=== PATIENT | female | born 1965 | race Asian ===

== ENCOUNTER 2017-10-21 14:58 | Inpatient (IN) | payer MEDICARE, MEDICAID ==
[~2017-10-21] VITALS: Ht 167.6 cm; Wt 58.1 kg
[2017-10-21 14:55] VITALS: BP 81/53
[~2017-10-21 14:58] MED LIST: PAXIL40 MG PO; TOPAMAX25 MG PO
[2017-10-21 16:27] LABS: ANION GAP 5 mmol/L (5-15); BLOOD UREA NITROGEN 20 mg/dL (7-18); CALCIUM 9.2 MG/DL (8.5-10.1); CARBON DIOXIDE 33 MMOL/L (21-32); CHLORIDE 105 MMOL/L (98-107); CREATININE 0.5 MG/DL (0.55-1.30); POTASSIUM 3.8 MMOL/L (3.5-5.1); SODIUM 143 MMOL/L (136-145)
[2017-10-21 16:29] LABS: BASOPHILS % (AUTO) 1.2 % (0.0-2.0); EOSINOPHILS % (AUTO) 1.5 % (0.0-3.0); HEMATOCRIT 34.9 % (37.0-47.0); HEMOGLOBIN 11.7 G/DL (12.0-16.0); MEAN CORPUSCULAR VOLUME 92 FL (80-99); MONOCYTES % (AUTO) 8.4 % (1.0-10.0); NEUTROPHILS % (AUTO) 45.9 % (45.0-75.0); PLATELET COUNT 263 K/UL (150-450); RED BLOOD COUNT 3.81 M/UL (4.20-5.40); RED CELL DISTRIBUTION WIDTH 12.6 % (11.6-14.8); WHITE BLOOD COUNT 6.1 K/UL (4.8-10.8)
[2017-10-21 16:31] LABS: INR 0.9 (0.9-1.1)
[2017-10-21 16:32] LABS: ALANINE AMINOTRANSFERASE 23 U/L (12-78); ALBUMIN 3.8 G/DL (3.4-5.0); ALBUMIN/GLOBULIN RATIO 1.1 (1.0-2.7); ALKALINE PHOSPHATASE 83 U/L (46-116); ASPARTATE AMINO TRANSFERASE 10 U/L (15-37); BILIRUBIN,TOTAL 0.2 MG/DL (0.2-1.0)
--- NOTE | 2017-10-21 16:32 | Diagnostic Imaging Report ---
Indication: Trauma, status post fall, head pain Technique: Continuous helical CT scanning of the head was performed without intravenous contrast material. Axial and coronal 5 mm sections were generated. Radiation dose was minimized using automated exposure control Dose: Total Dose Length Product - DLP 1432.[address] Dose Index - CTDIvol(s) 70.38 mGy. Comparison: none Findings: The ventricular system is normal in size and configuration. There is no shift of midline structures. No abnormal extra-axial fluid collections are noted. There is no evidence of intracerebral bleeding. No other abnormal high or low density areas are noted within the brain. Impression: Normal CT scan of the head without contrast material. The CT scanner at [facility] is accredited by the [employer] and the scans are performed using protocols designed to limit radiation exposure to as low as reasonably achievable to attain images of sufficient resolution adequate for diagnostic evaluation.
[2017-10-21 18:51] VITALS: BP 94/58
--- NOTE | 2017-10-21 19:12 | Emergency Room Report ---
History of Present Illness General Chief Complaint: Multiple Trauma/Fall Source: Patient Present Illness HPI This patient had a fall at the long-term facility while trying to get out of bed. She fell forward and hit her forehead. She states that she stood up from her bed and felt lightheaded and then fell. She is unsure if she lost consciousness. She denies chest pain or short of breath. She denies abdominal pain. She denies neck pain or headache. She had no other injuries. She has no other complaints. Allergies: Coded Allergies: SULFAMETHOXAZOLE (Verified Allergy, Severe, Hives, 12/17/11) TRIMETHOPRIM (Verified Allergy, Severe, Hives, 12/17/11) SULFA (SULFONAMIDE ANTIBIOTICS) (Unverified Allergy, Unknown, 10/21/17) Patient History Past Medical History: see triage record, other - Bilateral fractured ankles. Social History: Denies: smoking, alcohol use, drug use Last Menstrual Period: n/a Reviewed Nursing Documentation: PMH: Agreed; PSxH: Agreed Review of Systems All Other Systems: negative except mentioned in HPI Physical Exam Vital Signs Date Time Temp Pulse Resp B/P (MAP) Pulse Ox O2 Delivery O2 Flow Rate FiO2 10/21/17 14:50 98.1 70 16 88/60 98 Room Air 98.1 Sp02 EP Interpretation: reviewed, normal General Appearance: no apparent distress, alert, GCS 15, non-toxic Head: normocephalic, atraumatic Eyes: bilateral eye normal inspection, bilateral eye PERRL ENT: hearing grossly normal, normal pharynx, no angioedema, normal voice Neck: full range of motion, supple/symm/no masses Respiratory: chest non-tender, lungs clear, normal breath sounds, speaking full sentences Cardiovascular #1: regular rate, rhythm, no edema Gastrointestinal: normal bowel sounds, non tender, soft, non-distended, no guarding, no rebound Rectal: deferred Musculoskeletal: back normal, normal range of motion, non-tender Neurologic: alert, oriented x3, responsive, motor strength/tone normal, sensory intact, speech normal Psychiatric: memory normal, mood/affect normal, no suicidal/homicidal ideation Skin: normal color, no rash, warm/dry, well hydrated Medical Decision Making Diagnostic Impression: Primary Impression: Closed head injury Additional Impression: Syncope ER Course This patient presents with mechanical fall and closed head injury. CT of the head shows no acute findings. The patient has nonspecific ST segment findings on EKG. I suspect this is baseline for this patient. However, unfortunately I do not have a comparison available. The patient also describes a syncopal episode. The patient's blood pressure is slightly low and she may have orthostatic hypotension. Regardless, I will admit this patient for further monitoring, evaluation and treatment. Laboratory Tests Test 10/21/17 16:00 White Blood Count 6.1 K/UL (4.8-10.8) Red Blood Count 3.81 M/UL (4.20-5.40) L Hemoglobin 11.7 G/DL (12.0-16.0) L Hematocrit 34.9 % (37.0-47.0) L Mean Corpuscular Volume 92 FL (80-99) Mean Corpuscular Hemoglobin 30.8 PG (27.0-31.0) Mean Corpuscular Hemoglobin Concent 33.7 G/DL (32.0-36.0) Red Cell Distribution Width 12.6 % (11.6-14.8) Platelet Count 263 K/UL (150-450) Mean Platelet Volume 5.9 FL (6.5-10.1) L Neutrophils (%) (Auto) 45.9 % (45.0-75.0) Lymphocytes (%) (Auto) 43.0 % (20.0-45.0) Monocytes (%) (Auto) 8.4 % (1.0-10.0) Eosinophils (%) (Auto) 1.5 % (0.0-3.0) Basophils (%) (Auto) 1.2 % (0.0-2.0) Prothrombin Time 9.8 SEC (9.30-11.50) Prothrombin Time INR 0.9 (0.9-1.1) PTT 27 SEC (23-33) Sodium Level 143 MMOL/L (136-145) Potassium Level 3.8 MMOL/L (3.5-5.1) Chloride Level 105 MMOL/L (98-107) Carbon Dioxide Level 33 MMOL/L (21-32) H Anion Gap 5 mmol/L (5-15) Blood Urea Nitrogen 20 mg/dL (7-18) H Creatinine 0.5 MG/DL (0.55-1.30) L Estimate Glomerular Filtration Rate > 60 mL/min (>60) Glucose Level 92 MG/DL (74-106) Calcium Level 9.2 MG/DL (8.5-10.1) Total Bilirubin 0.2 MG/DL (0.2-1.0) Aspartate Amino Transferase (AST) 10 U/L (15-37) L Alanine Aminotransferase (ALT) 23 U/L (12-78) Alkaline Phosphatase 83 U/L (46-116) Total Protein 7.3 G/DL (6.4-8.2) Albumin 3.8 G/DL (3.4-5.0) Globulin 3.5 g/dL Albumin/Globulin Ratio 1.1 (1.0-2.7) EKG Diagnostic Results Rate: tachycardiac Rhythm: other - S.tachycardia ST Segments: no acute changes Rhythm Strip Diag. Results EP Interpretation: yes Rate: 70's Rhythm: NSR, no PVC's, no ectopy Chest X-Ray Diagnostic Results Chest X-Ray Diagnostic Results : Chest X-Ray Ordered: Yes # of Views/Limited/Complete: 1 View Indication: Other EP Interpretation: Yes Interpretation: no consolidation, no effusion, no pneumothorax, no acute cardiopulmonary disease Impression: No acute disease Electronically Signed by: Sona CT/MRI/US Diagnostic Results CT/MRI/US Diagnostic Results : Imaging Test Ordered: CT head Impression No acute findings. See official report. Last Vital Signs Date Time Temp Pulse Resp B/P (MAP) Pulse Ox O2 Delivery O2 Flow Rate FiO2 10/21/17 18:51 73 20 94/58 99 Room Air 10/21/17 14:55 98.1 98.1 Disposition: ADMITTED INPATIENT Condition: Stable Referrals: Jorge Solitario MD (PCP) Pamela Ramon DO Oct 21, 2017 19:12
[2017-10-21] MEDS ORDERED: VITAMIN D1000 UNI1 ORAL (19:57)
[2017-10-21] MEDS ORDERED: ACETAMINOP160 MG/51 ORAL (19:57)
[2017-10-21] MEDS ORDERED: GABAPENTIN300 MG ORAL (19:57)
[2017-10-21] MEDS ORDERED: PRAVASTATIN SOD20 M1 ORAL (19:57)
[2017-10-21] MEDS ORDERED: RISPERDAL1 MG PO (19:57)
[2017-10-21] MEDS ORDERED: HEPARIN SO5000 UNIT2 SUBQ (19:57)
[2017-10-21] MEDS ORDERED: ZOFRAN ODT8 MG ORAL (19:57)
[2017-10-21] MEDS ORDERED: DOCUSATE SODIU250 MG ORAL (19:57)
[2017-10-21] MEDS ORDERED: MIRALAX17 G2 ORAL (19:57)
[2017-10-21] MEDS ORDERED: BISACODYL5 MG ORAL (19:57)
[2017-10-21] MEDS ORDERED: LAMICTAL100 MG ORAL (19:57)
[2017-10-21] MEDS ORDERED: BISACODYL10 M1 RC (19:57)
[2017-10-21] MEDS ORDERED: MULTIVITAMINS1 EA14 PO (19:57)
[2017-10-21] MEDS ORDERED: PAXIL20 MG ORAL (19:57)
[2017-10-21] MEDS ORDERED: LACTULOSE20 GM/301 ORAL (19:57)
[2017-10-21] MEDS ORDERED: LORAZEPAM0.5 MG ORAL (19:57)
[2017-10-21] MEDS ORDERED: SENNA LAXATIVE8.6 MG PO (19:57)
[2017-10-21 20:23] LABS: CREATINE KINASE 26 U/L (26-308)
[2017-10-21 21:30] VITALS: BP 117/69
[2017-10-21] MEDS: D5 1/2NS 1,000 ML IV SCH (22:45)
[2017-10-22] VITALS: BP 92/59
[2017-10-22 04:00] VITALS: BP 99/62
[2017-10-22 05:10] LABS: BASOPHILS % (AUTO) 1.3 % (0.0-2.0); HEMATOCRIT 37.1 % (37.0-47.0); HEMOGLOBIN 12.1 G/DL (12.0-16.0); LYMPHOCYTES % (AUTO) 42.9 % (20.0-45.0); MEAN CORPUSCULAR VOLUME 93 FL (80-99); MONOCYTES % (AUTO) 7.4 % (1.0-10.0); NEUTROPHILS % (AUTO) 46.3 % (45.0-75.0); PLATELET COUNT 274 K/UL (150-450); RED BLOOD COUNT 3.97 M/UL (4.20-5.40); RED CELL DISTRIBUTION WIDTH 12.5 % (11.6-14.8); WHITE BLOOD COUNT 4.8 K/UL (4.8-10.8)
[2017-10-22 05:25] LABS: ANION GAP 7 mmol/L (5-15); BLOOD UREA NITROGEN 17 mg/dL (7-18); CALCIUM 9.1 MG/DL (8.5-10.1); CARBON DIOXIDE 29 MMOL/L (21-32); CHLORIDE 107 MMOL/L (98-107); CREATININE 0.5 MG/DL (0.55-1.30); POTASSIUM 4.2 MMOL/L (3.5-5.1); SODIUM 143 MMOL/L (136-145)
[2017-10-22] MEDS: D5 1/2NS 1,000 ML IV SCH ×2 (05:32→14:41)
[2017-10-22 08:00] VITALS: BP 106/69
--- NOTE | 2017-10-22 11:15 | Consultation ---
History of Present Illness General Date patient seen: Oct 22, 2017 Chief Complaint: Multiple Trauma/Fall Present Illness HPI 51 yo with hx of schizophrenia and depression and mmp. who was admitted for medical care. the pt stated that she was anxious, the pt is not psychotic nor manic. no si/hi Allergies: Coded Allergies: SULFAMETHOXAZOLE (Verified Allergy, Severe, Hives, 12/17/11) TRIMETHOPRIM (Verified Allergy, Severe, Hives, 12/17/11) SULFA (SULFONAMIDE ANTIBIOTICS) (Unverified Allergy, Unknown, 10/21/17) Medication History Scheduled Cholecalciferol (Vitamin D3)* (Vitamin D*), 6,000 UNITS ORAL DAILY, (Reported) Docusate Sodium* (Docusate Sodium*), 250 MG ORAL TWICE A DAY, (Reported) Gabapentin* (Gabapentin*), 300 MG ORAL THREE TIMES A DAY, (Reported) Heparin Sod (Porcine) (Heparin Sodium*), 5,000 UNITS SUBQ EVERY 12 HOURS, ( Reported) Lactulose (Lactulose*), 30 ML ORAL THREE TIMES A DAY, (Reported) Lamotrigine* (Lamictal*), 200 MG ORAL DAILY, (Reported) Multivitamin (Multivitamins), 1 EACH PO DAILY, (Reported) Paroxetine Hcl* (Paxil*), 20 MG ORAL QHS, (Reported) Pravastatin Sod* (Pravastatin Sod*), 20 MG ORAL BEDTIME, (Reported) Risperidone* (Risperdal*), 1 MG PO BID, (Reported) Sennosides (Senna Laxative), 2 TAB PO QHS, (Reported) Scheduled PRN Acetaminophen* (Acetaminophen*), 650 MG ORAL TID PRN for Mild Pain (Pain Scale 1 -3), (Reported) Bisacodyl* (Dulcolax*), 10 MG ORAL DAILY PRN for Constipation, (Reported) Lorazepam* (Lorazepam*), 0.5 MG ORAL Q12HR PRN for For Anxiety, (Reported) Ondansetron Odt* (Zofran Odt*), 4 MG ORAL PRN PRN for Nausea & Vomiting, ( Reported) Polyethylene Glycol 3350* (Miralax*), 17 GM ORAL DAILY PRN for Constipation, ( Reported) Discontinued Medications Bisacodyl (Bisacodyl), 10 MG RC PRN PRN for Constipation, (Reported) Discontinued Reason: Therapy completed Patient History History Provided By: Patient, Medical Record, PMD Healthcare decision maker Resuscitation status Full Code Advanced Directive on File Yes Past Medical/Surgical History Past Medical/Surgical History: (1) Closed head injury (2) Syncope Review of Systems Psychiatric: Reports: prior hx, anxiety, depressed feelings, emotional problems Physical Exam General Appearance: WD/WN, no apparent distress, alert Neurologic: oriented x 3, responsive, depressed affect Last 24 Hour Vital Signs Date Time Temp Pulse Resp B/P (MAP) Pulse Ox O2 Delivery O2 Flow Rate FiO2 10/22/17 09:00 Room Air 10/22/17 08:00 96.9 72 17 106/69 (81) 95 96.9 10/22/17 08:00 72 80 97 10/22/17 08:00 71 10/22/17 04:00 74 10/22/17 04:00 98.1 66 20 99/62 (74) 96 98.1 10/22/17 00:00 77 10/22/17 00:00 97.3 72 20 92/59 (70) 97 97.3 10/21/17 23:19 Room Air 10/21/17 21:45 81 10/21/17 21:30 97.5 68 19 117/69 (85) 100 97.5 10/21/17 21:15 98.1 73 20 94/58 99 Room Air 98.1 10/21/17 18:51 73 20 94/58 99 Room Air 10/21/17 14:55 98.1 16 81/53 98 Room Air 98.1 10/21/17 14:50 98.1 70 16 88/60 98 Room Air 98.1 Intake and Output 10/21/17 10/22/17 19:00 07:00 Intake Total 848 ml Balance 848 ml Intake IV Total 848 ml # Voids 3 Laboratory Tests Test 10/21/17 16:00 10/21/17 23:04 10/22/17 04:53 White Blood Count 6.1 K/UL (4.8-10.8) 4.8 K/UL (4.8-10.8) Red Blood Count 3.81 M/UL (4.20-5.40) L 3.97 M/UL (4.20-5.40) L Hemoglobin 11.7 G/DL (12.0-16.0) L 12.1 G/DL (12.0-16.0) Hematocrit 34.9 % (37.0-47.0) L 37.1 % (37.0-47.0) Mean Corpuscular Volume 92 FL (80-99) 93 FL (80-99) Mean Corpuscular Hemoglobin 30.8 PG (27.0-31.0) 30.5 PG (27.0-31.0) Mean Corpuscular Hemoglobin Concent 33.7 G/DL (32.0-36.0) 32.6 G/DL (32.0-36.0) Red Cell Distribution Width 12.6 % (11.6-14.8) 12.5 % (11.6-14.8) Platelet Count 263 K/UL (150-450) 274 K/UL (150-450) Mean Platelet Volume 5.9 FL (6.5-10.1) L 6.4 FL (6.5-10.1) L Neutrophils (%) (Auto) 45.9 % (45.0-75.0) 46.3 % (45.0-75.0) Lymphocytes (%) (Auto) 43.0 % (20.0-45.0) 42.9 % (20.0-45.0) Monocytes (%) (Auto) 8.4 % (1.0-10.0) 7.4 % (1.0-10.0) Eosinophils (%) (Auto) 1.5 % (0.0-3.0) 2.0 % (0.0-3.0) Basophils (%) (Auto) 1.2 % (0.0-2.0) 1.3 % (0.0-2.0) Prothrombin Time 9.8 SEC (9.30-11.50) Prothromb Time International Ratio 0.9 (0.9-1.1) Activated Partial Thromboplast Time 27 SEC (23-33) Sodium Level 143 MMOL/L (136-145) 143 MMOL/L (136-145) Potassium Level 3.8 MMOL/L (3.5-5.1) 4.2 MMOL/L (3.5-5.1) Chloride Level 105 MMOL/L (98-107) 107 MMOL/L (98-107) Carbon Dioxide Level 33 MMOL/L (21-32) H 29 MMOL/L (21-32) Anion Gap 5 mmol/L (5-15) 7 mmol/L (5-15) Blood Urea Nitrogen 20 mg/dL (7-18) H 17 mg/dL (7-18) Creatinine 0.5 MG/DL (0.55-1.30) L 0.5 MG/DL (0.55-1.30) L Estimat Glomerular Filtration Rate > 60 mL/min (>60) > 60 mL/min (>60) Glucose Level 92 MG/DL (74-106) 115 MG/DL (74-106) H Calcium Level 9.2 MG/DL (8.5-10.1) 9.1 MG/DL (8.5-10.1) Total Bilirubin 0.2 MG/DL (0.2-1.0) Aspartate Amino Transf (AST/SGOT) 10 U/L (15-37) L Alanine Aminotransferase (ALT/SGPT) 23 U/L (12-78) Alkaline Phosphatase 83 U/L (46-116) Total Protein 7.3 G/DL (6.4-8.2) Albumin 3.8 G/DL (3.4-5.0) Globulin 3.5 g/dL Albumin/Globulin Ratio 1.1 (1.0-2.7) Troponin I 0.000 ng/mL (0.000-0.056) 0.000 ng/mL (0.000-0.056) Height (Feet): 5 Height (Inches): 6.00 Weight (Pounds): 128 Medications Current Medications Medications (Trade) Dose Ordered Sig/Melinda Route PRN Reason Start Time Stop Time Status Last Admin Dose Admin Dextrose/Sodium Chloride 1,000 ml @ 125 mls/hr Q8H IV 10/21/17 22:30 10/22/17 22:29 10/22/17 05:32 Risperidone (RisperDAL) 1 mg BID ORAL 10/21/17 22:45 11/20/17 22:44 10/22/17 08:32 Assessment/Plan Status: stable Assessment/Plan Schizophrenia MDD Anxiety d/o -Risperdal -Klonopin -st/ro Kalie Borrego MD Oct 22, 2017 11:15
[2017-10-22 12:00] VITALS: BP 96/60
--- NOTE | 2017-10-22 14:52 | Cardiology Report ---
APPROVED REPORT EXAM: Two-dimensional and M-mode echocardiogram with Doppler and color Doppler. INDICATION Syncope M-Mode DIMENSIONS IVSd0.8 (0.7-1.1cm)Left Atrium (MM)3.1 (1.6-4.0cm) LVDd4.6 (3.5-5.6cm)Aortic Root3.1 (2.0-3.7cm) PWd0.8 (0.7-1.1cm)Aortic Cusp Exc.2.0 (1.5-2.0cm) LVDs2.8 (2.5-4.0cm) PWs1.3 cm Normal left ventricular chamber size, systolic function and wall motion. Left ventricular ejection fraction estimated to be 60 %. No evidence of left ventricular hypertrophy. No evidence of pericardial effusion. All other cardiac chamber sizes are within normal limits. Mild focal aortic valve sclerosis with adequate cusp excursion. Mildly thickened mitral valve leaflets with normal excursion. Mildm mitral annulus and aortic root calcification. Normal pulmonic valve structure. Normal tricuspid valve structure. IVC at normal size with physiologic collapse. A color flow and spectral Doppler study was performed and revealed: Trace aortic regurgitation. No mitral regurgitation. Mitral inflow indicates normal left ventricular diastolic function. Mild tricuspid regurgitation. Tricuspid systolic velocities suggests peak right ventricular systolic pressure of 27 mmHg. No pulmonic regurgitation present.
--- NOTE | 2017-10-22 15:25 | History and Physical ---
History of Present Illness General Date patient seen: Oct 22, 2017 Reason for Hospitalization: Multiple Trauma/Fall Present Illness HPI 51 y/o female with a PMH of psychosis and bilateral ankle fractures s/p bilateral ORIF presented with dizziness and near syncope from [facility], [facility]. Patient states that she had quickly gotten up and started feeling dizzy. She states that she feel face forward and hit her forehead but denies losing consciousness. She reports headache yesterday but states this has resolved today. No bruising, redness, or bleeding noted to forehead. CT head done in ED showed no acute pathology or bleed. Patient states that this has happened to her before but did not have a full workup done. In the ED, patient was noted to be hypotensive in the systolic 90s. Denies fevers, chills, chest pain, sob, dysuria, generalized weakness. Allergies: Coded Allergies: SULFAMETHOXAZOLE (Verified Allergy, Severe, Hives, 12/17/11) TRIMETHOPRIM (Verified Allergy, Severe, Hives, 12/17/11) SULFA (SULFONAMIDE ANTIBIOTICS) (Unverified Allergy, Unknown, 10/21/17) Medication History Scheduled Cholecalciferol (Vitamin D3)* (Vitamin D*), 6,000 UNITS ORAL DAILY, (Reported) Docusate Sodium* (Docusate Sodium*), 250 MG ORAL TWICE A DAY, (Reported) Gabapentin* (Gabapentin*), 300 MG ORAL THREE TIMES A DAY, (Reported) Heparin Sod (Porcine) (Heparin Sodium*), 5,000 UNITS SUBQ EVERY 12 HOURS, ( Reported) Lactulose (Lactulose*), 30 ML ORAL THREE TIMES A DAY, (Reported) Lamotrigine* (Lamictal*), 200 MG ORAL DAILY, (Reported) Multivitamin (Multivitamins), 1 EACH PO DAILY, (Reported) Paroxetine Hcl* (Paxil*), 20 MG ORAL QHS, (Reported) Pravastatin Sod* (Pravastatin Sod*), 20 MG ORAL BEDTIME, (Reported) Risperidone* (Risperdal*), 1 MG PO BID, (Reported) Sennosides (Senna Laxative), 2 TAB PO QHS, (Reported) Scheduled PRN Acetaminophen* (Acetaminophen*), 650 MG ORAL TID PRN for Mild Pain (Pain Scale 1 -3), (Reported) Bisacodyl* (Dulcolax*), 10 MG ORAL DAILY PRN for Constipation, (Reported) Lorazepam* (Lorazepam*), 0.5 MG ORAL Q12HR PRN for For Anxiety, (Reported) Ondansetron Odt* (Zofran Odt*), 4 MG ORAL PRN PRN for Nausea & Vomiting, ( Reported) Polyethylene Glycol 3350* (Miralax*), 17 GM ORAL DAILY PRN for Constipation, ( Reported) Discontinued Medications Bisacodyl (Bisacodyl), 10 MG RC PRN PRN for Constipation, (Reported) Discontinued Reason: Therapy completed Patient History History Provided By: Patient Healthcare decision maker Resuscitation status Full Code Advanced Directive on File Yes Review of Systems All Other Systems: negative except mentioned in HPI Physical Exam General Appearance: no apparent distress, alert HEENT: normocephalic, atraumatic Neck: non-tender, normal alignment, supple Respiratory/Chest: chest wall non-tender, lungs clear, normal breath sounds Cardiovascular/Chest: normal peripheral pulses, normal rate, regular rhythm Abdomen: normal bowel sounds, non tender, soft Skin Exam: normal pigmentation, warm/dry 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 automotive II-XII grossly normal, no motor/sensory deficits, alert, oriented x 3 Last 24 Hour Vital Signs Date Time Temp Pulse Resp B/P (MAP) Pulse Ox O2 Delivery O2 Flow Rate FiO2 10/22/17 12:00 75 10/22/17 12:00 98.1 74 18 96/60 (72) 95 98.1 10/22/17 09:00 Room Air 10/22/17 08:00 96.9 72 17 106/69 (81) 95 96.9 10/22/17 08:00 72 80 97 10/22/17 08:00 71 10/22/17 04:00 74 10/22/17 04:00 98.1 66 20 99/62 (74) 96 98.1 10/22/17 00:00 77 10/22/17 00:00 97.3 72 20 92/59 (70) 97 97.3 10/21/17 23:19 Room Air 10/21/17 21:45 81 10/21/17 21:30 97.5 68 19 117/69 (85) 100 97.5 10/21/17 21:15 98.1 73 20 94/58 99 Room Air 98.1 10/21/17 18:51 73 20 94/58 99 Room Air Intake and Output 10/21/17 10/22/17 19:00 07:00 Intake Total 973 ml Balance 973 ml Intake IV Total 973 ml # Voids 3 Laboratory Tests Test 10/21/17 16:00 10/21/17 23:04 10/22/17 04:53 White Blood Count 6.1 K/UL (4.8-10.8) 4.8 K/UL (4.8-10.8) Red Blood Count 3.81 M/UL (4.20-5.40) L 3.97 M/UL (4.20-5.40) L Hemoglobin 11.7 G/DL (12.0-16.0) L 12.1 G/DL (12.0-16.0) Hematocrit 34.9 % (37.0-47.0) L 37.1 % (37.0-47.0) Mean Corpuscular Volume 92 FL (80-99) 93 FL (80-99) Mean Corpuscular Hemoglobin 30.8 PG (27.0-31.0) 30.5 PG (27.0-31.0) Mean Corpuscular Hemoglobin Concent 33.7 G/DL (32.0-36.0) 32.6 G/DL (32.0-36.0) Red Cell Distribution Width 12.6 % (11.6-14.8) 12.5 % (11.6-14.8) Platelet Count 263 K/UL (150-450) 274 K/UL (150-450) Mean Platelet Volume 5.9 FL (6.5-10.1) L 6.4 FL (6.5-10.1) L Neutrophils (%) (Auto) 45.9 % (45.0-75.0) 46.3 % (45.0-75.0) Lymphocytes (%) (Auto) 43.0 % (20.0-45.0) 42.9 % (20.0-45.0) Monocytes (%) (Auto) 8.4 % (1.0-10.0) 7.4 % (1.0-10.0) Eosinophils (%) (Auto) 1.5 % (0.0-3.0) 2.0 % (0.0-3.0) Basophils (%) (Auto) 1.2 % (0.0-2.0) 1.3 % (0.0-2.0) Prothrombin Time 9.8 SEC (9.30-11.50) Prothromb Time International Ratio 0.9 (0.9-1.1) Activated Partial Thromboplast Time 27 SEC (23-33) Sodium Level 143 MMOL/L (136-145) 143 MMOL/L (136-145) Potassium Level 3.8 MMOL/L (3.5-5.1) 4.2 MMOL/L (3.5-5.1) Chloride Level 105 MMOL/L (98-107) 107 MMOL/L (98-107) Carbon Dioxide Level 33 MMOL/L (21-32) H 29 MMOL/L (21-32) Anion Gap 5 mmol/L (5-15) 7 mmol/L (5-15) Blood Urea Nitrogen 20 mg/dL (7-18) H 17 mg/dL (7-18) Creatinine 0.5 MG/DL (0.55-1.30) L 0.5 MG/DL (0.55-1.30) L Estimat Glomerular Filtration Rate > 60 mL/min (>60) > 60 mL/min (>60) Glucose Level 92 MG/DL (74-106) 115 MG/DL (74-106) H Calcium Level 9.2 MG/DL (8.5-10.1) 9.1 MG/DL (8.5-10.1) Total Bilirubin 0.2 MG/DL (0.2-1.0) Aspartate Amino Transf (AST/SGOT) 10 U/L (15-37) L Alanine Aminotransferase (ALT/SGPT) 23 U/L (12-78) Alkaline Phosphatase 83 U/L (46-116) Total Protein 7.3 G/DL (6.4-8.2) Albumin 3.8 G/DL (3.4-5.0) Globulin 3.5 g/dL Albumin/Globulin Ratio 1.1 (1.0-2.7) Troponin I 0.000 ng/mL (0.000-0.056) 0.000 ng/mL (0.000-0.056) Height (Feet): 5 Height (Inches): 6.00 Weight (Pounds): 128 Medications Current Medications Medications (Trade) Dose Ordered Sig/Melinda Route PRN Reason Start Time Stop Time Status Last Admin Dose Admin Clonazepam (KlonoPIN) 1 mg BEDTIME ORAL 10/22/17 21:00 10/29/17 20:59 Dextrose/Sodium Chloride 1,000 ml @ 125 mls/hr Q8H IV 10/21/17 22:30 10/22/17 22:29 10/22/17 14:41 Risperidone (RisperDAL) 1 mg BID ORAL 10/21/17 22:45 11/20/17 22:44 10/22/17 08:32 Assessment/Plan Problem List: (1) Near syncope ICD Codes: R55 - Syncope and collapse SNOMED: 769867492 (2) Psychosis ICD Codes: F29 - Unspecified psychosis not due to a substance or known physiological condition SNOMED: 88289160 (3) Dizziness ICD Codes: R42 - Dizziness and giddiness SNOMED: 561156968, [id number] Status: stable, progressing Assessment/Plan - Admit to inpatient - check trops/EKG - F/u ECHO - check orthostatics - monitor BP - IVF - pain control and supportive care DVT Prophylaxis: SCD, HSQ Code Status: Full Hospital Classification Declaration: Based on this initial evaluation, and depending on the patient's clinical course, I anticipate that this patient will require hospitalization for 1-2 days for near syncope and dizziness and close respiratory/hemodynamic monitoring. Disposition: Once the patient is stable to leave the hospital, I anticipate the patient will likely be discharged to the following environment: SNF at [facility] I spent 71 minutes on this patient's case, and 50 minutes were dedicated to counseling and/or care coordination. Discussed with patient/family, nursing staff, SW/CM, regarding clinical status, treatment course, and disposition planning. Time of note may not reflect time of encounter. Zena White NP Oct 22, 2017 15:25
--- NOTE | 2017-10-22 15:30 | Cardiology Report ---
APPROVED REPORT EKG Measurement Heart [id number] Normal sinus rhythm Normal ECG
--- NOTE | 2017-10-22 15:34 | Cardiology Report ---
APPROVED REPORT EKG Measurement Heart [id number] Normal sinus rhythm Rightward axis Cannot rule out Anterior infarct, age undetermined Abnormal ECG
--- NOTE | 2017-10-22 15:50 | Consultation ---
History of Present Illness General Date patient seen: Oct 22, 2017 Time patient seen: 15:46 Chief Complaint: Multiple Trauma/Fall Present Illness HPI 51 year old female with schizophrenia, hyperlipidemia, depression s/p mechanical fall from dizziness, she hit her head, no LOC, no CP, no SOB, no fever. She got up too fast and got dizzy and fell. CT head negative, Echo with normal function. Blood pressure in 90s Allergies: Coded Allergies: SULFAMETHOXAZOLE (Verified Allergy, Severe, Hives, 12/17/11) TRIMETHOPRIM (Verified Allergy, Severe, Hives, 12/17/11) SULFA (SULFONAMIDE ANTIBIOTICS) (Unverified Allergy, Unknown, 10/21/17) Medication History Scheduled Cholecalciferol (Vitamin D3)* (Vitamin D*), 6,000 UNITS ORAL DAILY, (Reported) Docusate Sodium* (Docusate Sodium*), 250 MG ORAL TWICE A DAY, (Reported) Gabapentin* (Gabapentin*), 300 MG ORAL THREE TIMES A DAY, (Reported) Heparin Sod (Porcine) (Heparin Sodium*), 5,000 UNITS SUBQ EVERY 12 HOURS, ( Reported) Lactulose (Lactulose*), 30 ML ORAL THREE TIMES A DAY, (Reported) Lamotrigine* (Lamictal*), 200 MG ORAL DAILY, (Reported) Multivitamin (Multivitamins), 1 EACH PO DAILY, (Reported) Paroxetine Hcl* (Paxil*), 20 MG ORAL QHS, (Reported) Pravastatin Sod* (Pravastatin Sod*), 20 MG ORAL BEDTIME, (Reported) Risperidone* (Risperdal*), 1 MG PO BID, (Reported) Sennosides (Senna Laxative), 2 TAB PO QHS, (Reported) Scheduled PRN Acetaminophen* (Acetaminophen*), 650 MG ORAL TID PRN for Mild Pain (Pain Scale 1 -3), (Reported) Bisacodyl* (Dulcolax*), 10 MG ORAL DAILY PRN for Constipation, (Reported) Lorazepam* (Lorazepam*), 0.5 MG ORAL Q12HR PRN for For Anxiety, (Reported) Ondansetron Odt* (Zofran Odt*), 4 MG ORAL PRN PRN for Nausea & Vomiting, ( Reported) Polyethylene Glycol 3350* (Miralax*), 17 GM ORAL DAILY PRN for Constipation, ( Reported) Discontinued Medications Bisacodyl (Bisacodyl), 10 MG RC PRN PRN for Constipation, (Reported) Discontinued Reason: Therapy completed Patient History Healthcare decision maker Resuscitation status Full Code Advanced Directive on File Yes Review of Systems Constitutional: Reports: no symptoms Eye: Reports: no symptoms ENT: Reports: no symptoms Respiratory: Reports: no symptoms Cardiovascular: Reports: no symptoms Gastrointestinal: Reports: no symptoms Genitourinary: Reports: no symptoms Musculoskeletal: Reports: no symptoms Skin: Reports: no symptoms Psychiatric: Reports: no symptoms Neurological: Reports: syncope, dizziness Endocrine: Reports: no symptoms Hematologic/Lymphatic: Reports: no symptoms Physical Exam General Appearance: no apparent distress Lines, tubes and drains: peripheral HEENT: normocephalic Neck: non-tender Respiratory/Chest: chest wall non-tender Cardiovascular/Chest: normal peripheral pulses Abdomen: normal bowel sounds Extremities: normal range of motion Skin Exam: normal pigmentation 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 Last 24 Hour Vital Signs Date Time Temp Pulse Resp B/P (MAP) Pulse Ox O2 Delivery O2 Flow Rate FiO2 10/22/17 12:00 75 10/22/17 12:00 98.1 74 18 96/60 (72) 95 98.1 10/22/17 09:00 Room Air 10/22/17 08:00 96.9 72 17 106/69 (81) 95 96.9 10/22/17 08:00 72 80 97 10/22/17 08:00 71 10/22/17 04:00 74 10/22/17 04:00 98.1 66 20 99/62 (74) 96 98.1 10/22/17 00:00 77 10/22/17 00:00 97.3 72 20 92/59 (70) 97 97.3 10/21/17 23:19 Room Air 10/21/17 21:45 81 10/21/17 21:30 97.5 68 19 117/69 (85) 100 97.5 10/21/17 21:15 98.1 73 20 94/58 99 Room Air 98.1 10/21/17 18:51 73 20 94/58 99 Room Air Intake and Output 10/21/17 10/22/17 19:00 07:00 Intake Total 973 ml Balance 973 ml Intake IV Total 973 ml # Voids 3 Laboratory Tests Test 10/21/17 16:00 10/21/17 23:04 10/22/17 04:53 White Blood Count 6.1 K/UL (4.8-10.8) 4.8 K/UL (4.8-10.8) Red Blood Count 3.81 M/UL (4.20-5.40) L 3.97 M/UL (4.20-5.40) L Hemoglobin 11.7 G/DL (12.0-16.0) L 12.1 G/DL (12.0-16.0) Hematocrit 34.9 % (37.0-47.0) L 37.1 % (37.0-47.0) Mean Corpuscular Volume 92 FL (80-99) 93 FL (80-99) Mean Corpuscular Hemoglobin 30.8 PG (27.0-31.0) 30.5 PG (27.0-31.0) Mean Corpuscular Hemoglobin Concent 33.7 G/DL (32.0-36.0) 32.6 G/DL (32.0-36.0) Red Cell Distribution Width 12.6 % (11.6-14.8) 12.5 % (11.6-14.8) Platelet Count 263 K/UL (150-450) 274 K/UL (150-450) Mean Platelet Volume 5.9 FL (6.5-10.1) L 6.4 FL (6.5-10.1) L Neutrophils (%) (Auto) 45.9 % (45.0-75.0) 46.3 % (45.0-75.0) Lymphocytes (%) (Auto) 43.0 % (20.0-45.0) 42.9 % (20.0-45.0) Monocytes (%) (Auto) 8.4 % (1.0-10.0) 7.4 % (1.0-10.0) Eosinophils (%) (Auto) 1.5 % (0.0-3.0) 2.0 % (0.0-3.0) Basophils (%) (Auto) 1.2 % (0.0-2.0) 1.3 % (0.0-2.0) Prothrombin Time 9.8 SEC (9.30-11.50) Prothromb Time International Ratio 0.9 (0.9-1.1) Activated Partial Thromboplast Time 27 SEC (23-33) Sodium Level 143 MMOL/L (136-145) 143 MMOL/L (136-145) Potassium Level 3.8 MMOL/L (3.5-5.1) 4.2 MMOL/L (3.5-5.1) Chloride Level 105 MMOL/L (98-107) 107 MMOL/L (98-107) Carbon Dioxide Level 33 MMOL/L (21-32) H 29 MMOL/L (21-32) Anion Gap 5 mmol/L (5-15) 7 mmol/L (5-15) Blood Urea Nitrogen 20 mg/dL (7-18) H 17 mg/dL (7-18) Creatinine 0.5 MG/DL (0.55-1.30) L 0.5 MG/DL (0.55-1.30) L Estimat Glomerular Filtration Rate > 60 mL/min (>60) > 60 mL/min (>60) Glucose Level 92 MG/DL (74-106) 115 MG/DL (74-106) H Calcium Level 9.2 MG/DL (8.5-10.1) 9.1 MG/DL (8.5-10.1) Total Bilirubin 0.2 MG/DL (0.2-1.0) Aspartate Amino Transf (AST/SGOT) 10 U/L (15-37) L Alanine Aminotransferase (ALT/SGPT) 23 U/L (12-78) Alkaline Phosphatase 83 U/L (46-116) Total Protein 7.3 G/DL (6.4-8.2) Albumin 3.8 G/DL (3.4-5.0) Globulin 3.5 g/dL Albumin/Globulin Ratio 1.1 (1.0-2.7) Troponin I 0.000 ng/mL (0.000-0.056) 0.000 ng/mL (0.000-0.056) Height (Feet): 5 Height (Inches): 6.00 Weight (Pounds): 128 Medications Current Medications Medications (Trade) Dose Ordered Sig/Melinda Route PRN Reason Start Time Stop Time Status Last Admin Dose Admin Clonazepam (KlonoPIN) 1 mg BEDTIME ORAL 10/22/17 21:00 10/29/17 20:59 Dextrose/Sodium Chloride 1,000 ml @ 125 mls/hr Q8H IV 10/21/17 22:30 10/22/17 22:29 10/22/17 14:41 Risperidone (RisperDAL) 1 mg BID ORAL 10/21/17 22:45 11/20/17 22:44 10/22/17 08:32 Assessment/Plan Status: stable Assessment/Plan Assessment: Schizophrenia Hyperlipidemia Fall Hypotension Plan: Check orthostatics IV fluids Echocardiogram reviewed, no structural etiology for falls. Check carotis US Risperidol and Klonopin both known to cause dizziness and hypotension - follow up psych CT head negative, no infectious etiologies in history Physical therapy Compression stockings Raúl Field M.D. Oct 22, 2017 15:50
[2017-10-22 16:00] VITALS: BP 126/60
[2017-10-22 17:53] LABS: APPEARANCE,URINE CLEAR; BILIRUBIN, URINE NEGATIVE (NEGATIVE); COLOR,URINE PALE YELLOW; GLUCOSE, URINE (UA) NEGATIVE (NEGATIVE); KETONES,URINE NEGATIVE (NEGATIVE); LEUKOCYTE ESTERASE ,URINE 2+ (NEGATIVE); NITRITE,URINE NEGATIVE (NEGATIVE); PH,URINE 7 (4.5-8.0); PROTEIN,URINE NEGATIVE (NEGATIVE); UROBILINOGEN,URINE NORMAL MG/DL (0.0-1.0)
[2017-10-22 20:00] VITALS: BP 98/56
[2017-10-23] VITALS: BP 117/58
[2017-10-23 04:00] VITALS: BP 120/74
[2017-10-23 07:32] LABS: BASOPHILS % (AUTO) 1.4 % (0.0-2.0); HEMATOCRIT 36.8 % (37.0-47.0); LYMPHOCYTES % (AUTO) 42.3 % (20.0-45.0); MEAN CORPUSCULAR VOLUME 93 FL (80-99); MONOCYTES % (AUTO) 7.4 % (1.0-10.0); PLATELET COUNT 263 K/UL (150-450); RED BLOOD COUNT 3.95 M/UL (4.20-5.40); RED CELL DISTRIBUTION WIDTH 12.6 % (11.6-14.8); WHITE BLOOD COUNT 4.4 K/UL (4.8-10.8)
[2017-10-23 07:58] LABS: ANION GAP 6 mmol/L (5-15); BLOOD UREA NITROGEN 9 mg/dL (7-18); CALCIUM 9.2 MG/DL (8.5-10.1); CARBON DIOXIDE 28 MMOL/L (21-32); CHLORIDE 108 MMOL/L (98-107); CREATININE 0.5 MG/DL (0.55-1.30); POTASSIUM 4.1 MMOL/L (3.5-5.1); SODIUM 142 MMOL/L (136-145)
[2017-10-23 08:00] VITALS: BP 113/74
[2017-10-23] MEDS ORDERED: LORazepam 1mg tab ORAL PRN (11:45)
[2017-10-23] MEDS ORDERED: CIPROFLOXACIN500 M2 ORAL (11:54)
[2017-10-23 12:00] VITALS: BP 111/75
[2017-10-23] MEDS ORDERED: Ciprofloxacin 500mg tab ORAL SCH (13:00)
--- NOTE | 2017-10-23 13:06 | General Progress Note ---
Assessment/Plan Status: stable Assessment/Plan Schizophrenia Anxiety d/o Risperdal 2mg qhs Ativan prn Subjective Date patient seen: Oct 23, 2017 Neurologic/Psychiatric: Reports: anxiety, emotional problems Allergies: Coded Allergies: SULFAMETHOXAZOLE (Verified Allergy, Severe, Hives, 12/17/11) TRIMETHOPRIM (Verified Allergy, Severe, Hives, 12/17/11) SULFA (SULFONAMIDE ANTIBIOTICS) (Unverified Allergy, Unknown, 10/21/17) Subjective the pt cont to have anxiety Objective Last 24 Hour Vital Signs Date Time Temp Pulse Resp B/P (MAP) Pulse Ox O2 Delivery O2 Flow Rate FiO2 10/23/17 09:00 Room Air 10/23/17 08:10 97 10/23/17 08:05 93 10/23/17 08:00 70 10/23/17 08:00 63 10/23/17 08:00 97.9 74 18 113/74 (87) 98 97.9 10/23/17 04:00 61 10/23/17 04:00 98.1 86 18 120/74 (89) 98 98.1 10/23/17 00:00 65 10/23/17 00:00 97.8 76 18 117/58 (77) 97 97.8 10/22/17 21:00 Room Air 10/22/17 20:00 75 10/22/17 20:00 97.9 78 18 98/56 (70) 95 97.9 10/22/17 20:00 78 86 109 10/22/17 16:00 98.0 80 19 126/60 (82) 94 98.0 10/22/17 16:00 78 Intake and Output 10/22/17 10/23/17 19:00 07:00 Intake Total 1500 ml 975 ml Output Total 0 ml Balance 1500 ml 975 ml Intake Oral 600 ml IV Total 1500 ml 375 ml Output Stool Total 0 ml # Voids 7 Laboratory Tests 10/22/17 17:40: Urine Color Pale yellow, Urine Appearance Clear, Urine pH 7, Urine Specific [place] 1.020, Urine Protein Negative, Urine Glucose (UA) Negative, Urine Ketones Negative, Urine Occult Blood Negative, Urine Nitrite Negative, Urine Bilirubin Negative, Urine Urobilinogen Normal, Urine Leukocyte Esterase 2+H, Urine RBC 0, Urine WBC 10-15H, Urine Squamous Epithelial Cells Few, Urine Bacteria ModerateH 10/23/17 06:11: White Blood Count 4.4L, Red Blood Count 3.95L, Hemoglobin 12.0, Hematocrit 36.8L , Mean Corpuscular Volume 93, Mean Corpuscular Hemoglobin 30.3, Mean Corpuscular Hemoglobin Concent 32.5, Red Cell Distribution Width 12.6, Platelet Count 263, Mean Platelet Volume 6.1L, Neutrophils (%) (Auto) 47.0, Lymphocytes ( %) (Auto) 42.3, Monocytes (%) (Auto) 7.4, Eosinophils (%) (Auto) 2.0, Basophils (%) (Auto) 1.4, Sodium Level 142, Potassium Level 4.1, Chloride Level 108H, Carbon Dioxide Level 28, Anion Gap 6, Blood Urea Nitrogen 9, Creatinine 0.5L, Estimat Glomerular Filtration Rate > 60, Glucose Level 99, Calcium Level 9.2 Height (Feet): 5 Height (Inches): 6.00 Weight (Pounds): 128 General Appearance: no apparent distress, alert Neurologic: oriented x 3, responsive, depressed affect Kalie Borrego MD Oct 23, 2017 13:06
--- NOTE | 2017-10-23 14:51 | Discharge Summary ---
Discharge Summary Hospital Course Date of Admission Oct 21, 2017 at 19:37 Date of Discharge October 23, 2017 Admitting Diagnosis syncope HPI Catie Zimmer is a 51 year old female who was admitted on Oct 21, 2017 at 19:37 for Syncope 51 y/o female with a PMH of psychosis and bilateral ankle fractures s/p bilateral ORIF presented with dizziness and near syncope from SNF, [facility]. Patient states that she had quickly gotten up and started feeling dizzy. She states that she feel face forward and hit her forehead but denies losing consciousness. She reports headache yesterday but states this has resolved today. No bruising, redness, or bleeding noted to forehead. CT head done in ED showed no acute pathology or bleed. Patient states that this has happened to her before but did not have a full workup done. In the ED, patient was noted to be hypotensive in the systolic 90s. Denies fevers, chills, chest pain, sob, dysuria, generalized weakness. Consultations Psychiatry Procedures None Hospital Course Patient was admitted for near syncope workup. Troponins x 3 were negative and patient remained sinus rhythm on telemetry. EKG did not show any acute ST changes. ECHO showed 60% EF with no valvular abnormalities. Patient was noted to be positive for orthostatics and patient was given IVF. Patient's blood pressure normalized to the 110s. Patient was also noted to have a UTI with urine culture growing gram negative bacilli. Patient was started on ciprofloxacin. Patient was therefore hemodynamically stable for discharge and patient was discharged with 5 more days of ciprofloxacin to [facility]. Discharge Medications New Medications: Ciprofloxacin Hcl* (Ciprofloxacin Hcl*) 500 Mg Tablet 500 MG ORAL EVERY 12 HOURS for 5 Days, #10 TAB Continued Medications: Acetaminophen* (Acetaminophen*) 160 Mg/5 Ml Liquid 650 MG ORAL TID PRN for Mild Pain (Pain Scale 1-3), ML (This prescription has been renewed) Bisacodyl* (Dulcolax*) 5 Mg Tablet.dr 10 MG ORAL DAILY PRN for Constipation (This prescription has been renewed) Cholecalciferol (Vitamin D3)* (Vitamin D*) 1,000 Unit Tablet 6000 UNITS ORAL DAILY (This prescription has been renewed) Docusate Sodium* (Docusate Sodium*) 250 Mg Capsule 250 MG ORAL TWICE A DAY, CAP (This prescription has been renewed) Gabapentin* (Gabapentin*) 300 Mg Capsule 300 MG ORAL THREE TIMES A DAY, CAP 0 Refills (This prescription has been renewed ) Lamotrigine* (Lamictal*) 100 Mg Tablet 200 MG ORAL DAILY (This prescription has been renewed) Lorazepam* (Lorazepam*) 0.5 Mg Tablet 0.5 MG ORAL Q12HR PRN for For Anxiety, TAB (This prescription has been renewed) Multivitamin (Multivitamins) 1 Each Tablet 1 EACH PO DAILY, TAB (This prescription has been renewed) Ondansetron Odt* (Zofran Odt*) 8 Mg Tab.rapdis 4 MG ORAL PRN PRN for Nausea & Vomiting (This prescription has been renewed) Paroxetine Hcl* (Paxil*) 20 Mg Tablet 20 MG ORAL QHS, TAB 0 Refills (This prescription has been renewed) Polyethylene Glycol 3350* (Miralax*) 17 Gm Powd.pack 17 GM ORAL DAILY PRN for Constipation (This prescription has been renewed) Pravastatin Sod* (Pravastatin Sod*) 20 Mg Tablet 20 MG ORAL BEDTIME, TAB (This prescription has been renewed) Risperidone* (Risperdal*) 1 Mg Tablet 1 MG PO BID, TAB (This prescription has been renewed) Sennosides (Senna Laxative) 8.6 Mg Tablet 2 TAB PO QHS, TAB (This prescription has been renewed) Discontinued Medications: Heparin Sod (Porcine) (Heparin Sodium*) 5 000/1 Ml Vial 5000 UNITS SUBQ EVERY 12 HOURS for DVT PROPHYLAXIS, VIAL Lactulose (Lactulose*) 20 Gm/30 Ml Solution 30 ML ORAL THREE TIMES A DAY, ML Discharge Condition Upon Discharge: stable Discharge Disposition Patient was discharged to SNF/Subacute Facility(03) Discharge Diagnoses: (1) Closed head injury (2) Syncope (3) Dizziness (4) Psychosis (5) Near syncope Zena White NP Oct 23, 2017 14:51
== END 2017-10-23 15:53 | DRG 312 ==
LOC: EDBD 14:58 → EMR 16:13 → 2E 19:37 → EDBEDREQ 20:16
DX: I95.1 Orthostatic hypotension (principal); F20.9 Schizophrenia, unspecified; Z88.2 Allergy status to sulfonamides; Z88.8 Allergy status to other drugs, medicaments and biological substances; R42 Dizziness and giddiness; S09.8XXA Other specified injuries of head, initial encounter; W19.XXXA Unspecified fall, initial encounter; Y92.129 Unspecified place in nursing home as the place of occurrence of the external cause; F32.9 Major depressive disorder, single episode, unspecified; F41.9 Anxiety disorder, unspecified; E78.5 Hyperlipidemia, unspecified
CPT/HCPCS: 36415; 70450; 80048; 80053; 81001; 82550; 84484; 85025; 85610; 85730; 87081; 87086; 87181; 93005; 93306